=== PATIENT | male | born 1990 | race Caucasian/White ===

== ENCOUNTER 2023-11-25 21:16 | Emergency (ER) | payer MEDICAID, OTHER ==
[~2023-11-25] VITALS: Ht 188 cm; Wt 96.0 kg
[2023-11-25 21:26] VITALS: O2SAT 98
[2023-11-25 21:43] VITALS: BP 119/79; PULSE 82; RESP 20; TEMP 98.4; O2SAT 100
[2023-11-25 22:10] LABS: CLARITY URINE CLEAR (CLEAR); COLOR URINE DARK YELLOW (YELLOW); GLUCOSE URINE NEGATIVE (NEGATIVE); KETONES URINE 1+ (NEGATIVE); LEUKOCYTE ESTERASE URINE NEGATIVE (NEGATIVE); NITRITE URINE NEGATIVE (NEGATIVE); OCCULT BLOOD URINE NEGATIVE (NEGATIVE); PH URINE 5.5 (4.5-8.0); PROTEIN URINE 1+ (NEGATIVE); UROBILINOGEN URINE 0.2 E.U./dL (0.2-1.0)
[2023-11-25] MEDS: CEFTRIAXONE SODIUM 500MG VIAL IM ONE (22:10)
[2023-11-25 22:27] LABS: BACTERIA URINE NONE SEEN; RBC URINE NONE SEEN /hpf (0-2); SQUAMOUS EPITHELIAL CELL URINE RARE /lpf (RARE/1+); WBC URINE 0-2 /hpf (0-2)
[2023-11-25] MEDS ORDERED: RALT400T MT (23:41)
[2023-11-25] MEDS ORDERED: EMTR1TAB11 MT (23:41)
[2023-11-28 10:09] LABS: CHLAMYDIA TRACHOMATIS NAA Positive (Negative); NEISSERIA GONORRHOEAE NAA Negative (Negative)
== END 2023-11-25 23:49 | disposition home or self-care (01) ==
LOC: ER 21:16
DX: Z20.6 Contact with and (suspected) exposure to human immunodeficiency virus [HIV] (principal); A64 Unspecified sexually transmitted disease
CPT/HCPCS: 99283; 87491; 87591; 81003; 96372; J0696